=== PATIENT | male | born 1950 | race Caucasian/White ===

== ENCOUNTER 2016-09-01 10:36 | Emergency (ER) | payer MEDICARE, BC ==
[2016-09-01 11:04] VITALS: BP 124/88
[2016-09-01] MEDS ORDERED: Ketorolac 30 MG/ML SDV IVPUSH ONE (11:26)
[2016-09-01] MEDS ORDERED: Sodium Chloride 0.9% 10 ML Syringe FLUSH PRN (11:26)
[2016-09-01] MEDS ORDERED: Ondansetron 4 MG/2 ML SDV IVPUSH ONE (11:26)
--- NOTE | 2016-09-01 11:57 | EDM.PDOC ---
ED HPI GENERAL MEDICAL PROBLEM - General Chief Complaint: Abdominal Pain Stated Complaint: Flank pain, abdominal pain Time Seen by Provider: 09/01/16 11:10 Source of Information: Reports: Patient, Old Records (Obtained from [facility]), RN Notes Reviewed History Limitations: Reports: No Limitations - History of Present Illness INITIAL COMMENTS - FREE TEXT/NARRATIVE: 65 year old male presents to the ED today with complaints of intermittent, colicky, severe, left flank pain and LLQ abdominal pain. The pain started on Monday after a fall. He fell backwards, hitting his mid back on a railroad tie. The pain has been intermittent since that time. He was initially evaluated on Monday of this week by Dr. Aguiar at [facility]. He had a CT scan done at that time and was told he had a kidney stone and hernias. He states "I guess CT scans don't lie but I don't believe that's what's going on. I 've never had kidney stones before." He called [facility] and was instructed to come to the ED for evaluation. He was discharged home with flexeril and norco. He took both around 9am this morning. He says he was doing well and his pain had mostly subsided until this morning at which time he had a sudden onset of pain followed by nausea and vomiting x3. He has pain with urination, frequency, and is voiding small amounts. He has not noticed any hematuria. He denies testicle pain. He reports some loose stools but says he took a stool softener due to concerns of constipation while taking pain medication. No fever or chills. Left Abdominal Pain Score (Numeric/FACES): 5 - Related Data Allergies Allergy/AdvReac Type Severity Reaction Status Date / Time No Known Allergies Allergy Verified 09/01/16 11:03 Home Meds: Home Meds Acetaminophen/HYDROcodone [Sheffield 325-5 MG] 1 tab PO Q4H PRN #15 tablet 09/01/16 [Rx] Hydrocodone/Acetaminophen [Hydrocodon-Acetaminophen 5-325] 1 tab PO Q4H PRN 11/10 [History] Past Medical History HEENT History: Reports: Impaired Vision Other HEENT History: glasses Gastrointestinal History: Reports: Hemorrhoids Genitourinary History: Reports: Renal Calculus Musculoskeletal History: Reports: Arthritis Neurological History: Reports: Concussion, Vertigo - Past Surgical History HEENT Surgical History: Reports: Tonsillectomy Social & Family History - Family History Family Medical History: Noncontributory - Tobacco Use Smoking Status *Q: Never Smoker Second Hand Smoke Exposure: No - Caffeine Use Caffeine Use: Reports: Coffee, Soda Caffeine Use Comment: Daily - Recreational Drug Use Recreational Drug Use: No ED ROS GENERAL - Review of Systems Review Of Systems: See Below Constitutional: Reports: No Symptoms. Denies: Fever, Chills, Diaphoresis Respiratory: Reports: No Symptoms. Denies: Shortness of Breath Cardiovascular: Reports: No Symptoms. Denies: Chest Pain GI/Abdominal: Reports: Abdominal Pain, Diarrhea, Nausea, Vomiting : Reports: Dysuria, Flank Pain, Frequency, Pain. Denies: Hematuria Musculoskeletal: Reports: Back Pain Neurological: Reports: No Symptoms. Denies: Numbness, Tingling, Weakness ED EXAM, GI/ABD - Physical Exam Exam: See Below Exam Limited By: No Limitations General Appearance: Alert, WD/WN, Anxious, Mild Distress Respiratory/Chest: No Respiratory Distress, Lungs Clear, Normal Breath Sounds, No Accessory Muscle Use, Chest Non-Tender Cardiovascular: Regular Rate, Rhythm, No Murmur GI/Abdominal: Normal Bowel Sounds, Soft, No Organomegaly, No Distention, Tenderness (mild tenderness with palpation to LLQ and LUQ, no guarding, no peritoneal signs ). No: Guarding, Rebound, Rigidity Back Exam: Normal Inspection, Full Range of Motion. No: CVA Tenderness (L), CVA Tenderness (R), Paraspinal Tenderness, Vertebral Tenderness Neurological: Alert, Oriented, Normal Cognition Psychiatric: Flat Affect Skin Exam: Warm, Dry, Intact Course - Vital Signs Last Recorded V/S: Last Vital Signs Temp 97.7 F 09/01/16 10:56 Pulse 69 09/01/16 10:56 Resp 20 09/01/16 10:56 BP 124/88 09/01/16 10:56 Pulse Ox 95 09/01/16 10:56 - Orders/Labs/Meds Orders: Active Orders 24 hr Category Date Time Status Peripheral IV Care [RC] . DIRECTED Care 09/01/16 11:26 Active Abdomen Pelvis wo Cont [CT] Stat Exams 09/01/16 11:26 Taken Sodium Chloride 0.9% [Saline Flush] Med 09/01/16 11:26 Active 10 ml FLUSH ASDIRECTED PRN Peripheral IV Insertion Adult [OM.PC] Stat Oth 09/01/16 11:26 Ordered Medication Orders Sodium Chloride (Saline Flush) 10 ml FLUSH ASDIRECTED PRN PRN Reason: Keep Vein Open Last Admin: 09/01/16 11:57 Dose: 10 ml Labs: Laboratory Tests 09/01/16 09/01/16 09/01/16 Range/Units 11:30 11:50 11:50 WBC 9.24 H (4.23-9.07) K/mm3 RBC 4.51 L (4.63-6.08) M/mm3 Hgb 13.9 (13.7-17.5) gm/L Hct 40.3 (40.1-51.0) % MCV 89.4 (79.0-92.2) fl MCH 30.8 (25.7-32.2) pg MCHC 34.5 (32.2-35.5) g/dl RDW Std Deviation 40.7 (35.1-43.9) fL Plt Count 198 (163-337) K/mm3 MPV 9.8 (9.4-12.3) fl Neut % (Auto) 79.7 H (34.0-67.9) % Lymph % (Auto) 9.3 L (21.8-53.1) % [place] % (Auto) 8.9 (5.3-12.2) % Eos % (Auto) 1.5 (0.8-7.0) Baso % (Auto) 0.5 (0.1-1.2) % Neut # (Auto) 7.36 H (1.78-5.38) K/mm3 Lymph # (Auto) 0.86 L (1.32-3.57) K/mm3 [place] # (Auto) 0.82 (0.30-0.82) K/mm3 Eos # (Auto) 0.14 (0.04-0.54) K/mm3 Baso # (Auto) 0.05 (0.01-0.08) K/mm3 Manual Slide Review Abnormal smear Sodium 138 (136-145) mEq/L Potassium 4.1 (3.5-5.1) mEq/L Chloride 105 (98-107) mEq/L Carbon Dioxide 25 (21-32) mEq/L Anion Gap 12.1 (5-15) BUN 25 H (7-18) mg/dL Creatinine 1.5 H (0.7-1.3) mg/dL Est Cr Clr Drug Dosing 44.31 mL/min Estimated GFR (MDRD) 47 (>60) mL/min BUN/Creatinine Ratio 16.7 (14-18) Glucose 120 H (80-115) mg/dL Calcium 8.5 (8.5-10.1) mg/dL Total Bilirubin 0.4 (0.2-1.0) mg/dL AST 21 (15-37) U/L ALT 20 (16-63) U/L Alkaline Phosphatase 94 (46-116) U/L Total Protein 7.4 (6.4-8.2) g/dl Albumin 3.6 (3.4-5.0) g/dl Globulin 3.8 gm/dL Albumin/Globulin Ratio 1.0 (1-2) Urine Color Yellow (Yellow) Urine Appearance Clear (Clear) Urine pH 7.0 (5.0-8.0) Ur Specific [place] 1.020 (1.005-1.030) Urine Protein Trace H (Negative) Urine Glucose (UA) Negative (Negative) Urine Ketones Negative (Negative) Urine Occult Blood Trace-intact H (Negative) Urine Nitrite Negative (Negative) Urine Bilirubin Negative (Negative) Urine Urobilinogen 0.2 (0.2-1.0) Ur Leukocyte Esterase Negative (Negative) Urine RBC 5-10 H (0-5) /hpf Urine WBC 0-5 (0-5) /hpf Ur Epithelial Cells Not seen (0-5) /hpf Urine Bacteria Not seen (FEW) /hpf Urine Mucus Few (FEW) /hpf Meds: Medications Generic Name Dose Route Start Last Admin Trade Name Freq PRN Reason Stop Dose Admin Sodium Chloride 10 ml 09/01/16 11:26 09/01/16 11:57 Saline Flush FLUSH 10 ml ASDIRECTED PRN Administration Keep Vein Open Discontinued Medications Generic Name Dose Route Start Last Admin Trade Name Freq PRN Reason Stop Dose Admin Ketorolac Tromethamine 30 mg 09/01/16 11:26 09/01/16 11:58 Toradol IVPUSH 09/01/16 11:27 30 mg ONETIME ONE Administration Ondansetron HCl 4 mg 09/01/16 11:26 09/01/16 11:56 Zofran IVPUSH 09/01/16 11:27 4 mg ONETIME ONE Administration - Re-Assessments/Exams Free Text/Narrative Re-Assessment/Exam: CT report obtained from [facility]. CT abdomen/pelvis was obtained with oral contrast only on 08/29/16. Impression: No evidence of appendicitis, diverticulitis, or hydronephrosis. Small calyceal tip stone in the midpole of the right kidney. Small fat containing inguinal hernia is noted on the left greater than the right. 09/01/16 1245 CBC is unremarkable. CMP reveals mildly elevated kidney function and glucose, otherwise normal. UA positive for hematuria. CT of abdomen/pelvis without contrast read by [facility], impression: 1. mild left perinephric stranding and hydronephrosis secondary to a 4mm calculus located at or just inside the left ureterovesical junction. Patient was notified of findings. Images of kidney stones was provided for education purposes. The patient was educated no supportive care and f/u instructions. He has about 5 pills left of Sheffield from his clinic visit on Monday. Will provide him with a refill. He was educated on safety precautions regarding opiate pain medication. Discharge instructions as documented. Departure - Departure Time of Disposition: 12:56 Disposition: Home, Self-Care 01 Condition: good Clinical Impression: Kidney stone on left side Back strain Qualifiers: Encounter type: initial encounter Qualified Code(s): S39.012A - Strain of muscle, fascia and tendon of lower back, initial encounter - Discharge Information Prescriptions: Acetaminophen/HYDROcodone [Sheffield 325-5 MG] 1 tab PO Q4H PRN #15 tablet PRN Reason: Pain Instructions: Kidney Stones, [id number] Referrals: Tonny Lomeli MD [Primary Care Provider] - Forms: ED Department Discharge Additional Instructions: Drink at least 80 oz of water per day Ibuprofen 600-800mg every 8 hours as needed for mild to moderate pain Hydrocodone/apap 1-2 tabs every 4-6 hours as needed for more severe pain Follow-up in clinic or ER if you have not passed the stone in 3-4 days Return to ER if you are unable to manage your pain at home No driving for at least 6-8 hours after taking your pain medication or muscle relaxer - My Orders Last 24 Hours: My Active Orders 09/01/16 11:26 Peripheral IV Care [RC] . DIRECTED Abdomen Pelvis wo Cont [CT] Stat Sodium Chloride 0.9% [Saline Flush] 10 ml FLUSH ASDIRECTED PRN Peripheral IV Insertion Adult [OM.PC] Stat - Assessment/Plan Last 24 Hours: My Active Orders 09/01/16 11:26 Peripheral IV Care [RC] . DIRECTED Abdomen Pelvis wo Cont [CT] Stat Sodium Chloride 0.9% [Saline Flush] 10 ml FLUSH ASDIRECTED PRN Peripheral IV Insertion Adult [OM.PC] Stat
--- NOTE | 2016-09-01 14:56 | CT ---
CT abdomen and pelvis Technique: Multiple axial sections were obtained from above the dome of the diaphragm inferiorly through the pubic symphysis. Intravenous and oral contrast was not utilized. Study has been performed as a ureteral stone protocol. Findings: Left ureter is mildly prominent. Slight inflammatory change is seen around portions of the left ureter. These findings are due to an obstructing stone within the distal left ureter at the UVJ measuring 3-4 mm. No other abnormal calcification seen along the course of the ureters. Small nonobstructing stone noted within the right kidney measuring less than 5 mm. Small cyst noted within the lower right kidney measuring about 1 cm. No additional abnormality is seen within the kidneys. Visualized lung bases are clear. Noncontrast appearance of the liver and spleen appears within normal limits. Pancreas appears within normal limits. Aorta shows no aneurysmal dilatation with mild atherosclerotic change which continues into the iliac vessels. Gallbladder shows no calcified gallstones. No retroperitoneal adenopathy or mesenteric abnormalities are seen. Appendix felt to be seen and is within normal limits. No pelvic mass or adenopathy is noted. Small fat-containing left inguinal hernia is noted. Bone window settings were reviewed which appear within normal limits for the patient's age. Impression: 1. Slightly prominent size of the left ureter with mild periurethral inflammatory change. These findings are caused by an obstructing 3-4 mm distal left ureteral stone at the UVJ. 2. Small cyst and small nonobstructing stone within the right kidney. 3. Other incidental findings as described above. Agree with preliminary report issued by [facility] (preliminary report dictated on 09/01/16, 1:03 PM Central Time) Diagnostic code #3
== END 2016-09-01 13:15 | disposition home or self-care (01) ==
LOC: JD.ED 10:36
DX: S39.012A Strain of muscle, fascia and tendon of lower back, initial encounter (principal); N13.2 Hydronephrosis with renal and ureteral calculous obstruction; M19.90 Unspecified osteoarthritis, unspecified site; Z98.890 Other specified postprocedural states; W01.198A Fall on same level from slipping, tripping and stumbling with subsequent striking against other object, initial encounter
CPT/HCPCS: 36415; 74176; 80053; 81001; 85025; 96374; 96375; 99284; J1885; J2405; J7050

== ENCOUNTER 2018-03-22 08:35 | Emergency (ER) | payer OTHER, MEDICARE, BC ==
[2018-03-22] MEDS ORDERED: Acetaminophen 325 MG Tab PO ONE (09:04)
--- NOTE | 2018-03-22 09:51 | EDM.PDOC ---
ED HPI GENERAL MEDICAL PROBLEM - General Chief Complaint: Chest Pain Stated Complaint: CHEST INJURY Time Seen by Provider: 03/22/18 08:44 Source of Information: Reports: Patient, RN Notes Reviewed - History of Present Illness INITIAL COMMENTS - FREE TEXT/NARRATIVE: 67-year-old male was pushing snow with a skid steer type cut off machine unloader when he ran into the curb at the edge of a parking lot unexpectedly. He was going quite fast. This threw his chest against a protective bar that goes across the seat in front of him anterior to his chest. He has had anterior chest discomfort since this happened worse with deep breathing and worse with certain types of motion. No abdominal pain nausea vomiting. No unusual weakness dizziness. Chest Pain Score (Numeric/FACES): 4 - Related Data Allergies Allergy/AdvReac Type Severity Reaction Status Date / Time No Known Allergies Allergy Verified 03/22/18 08:47 Home Meds: Home Meds . [No Known Home Meds] 03/22/18 [History] Past Medical History HEENT History: Reports: Impaired Vision Other HEENT History: glasses Gastrointestinal History: Reports: Hemorrhoids Genitourinary History: Reports: Renal Calculus Musculoskeletal History: Reports: Arthritis Neurological History: Reports: Concussion, Vertigo - Past Surgical History HEENT Surgical History: Reports: Tonsillectomy Social & Family History - Family History Family Medical History: Noncontributory - Caffeine Use Caffeine Use: Reports: Coffee, Soda Caffeine Use Comment: Daily ED ROS GENERAL - Review of Systems Review Of Systems: See Below Constitutional: Denies: Diaphoresis HEENT: Reports: No Symptoms Respiratory: Reports: Pleuritic Chest Pain. Denies: Shortness of Breath, Wheezing Cardiovascular: Reports: Chest Pain GI/Abdominal: Denies: Abdominal Pain (Anterior chest), Nausea, Vomiting Musculoskeletal: Denies: Neck Pain, Back Pain, Joint Pain Skin: Reports: No Symptoms Neurological: Reports: No Symptoms. Denies: Dizziness ED EXAM, GENERAL - Physical Exam Exam: See Below General Appearance: Alert, Mild Distress Eye Exam: Bilateral Eye: PERRL Throat/Mouth: Normal Inspection Head: Atraumatic Neck: Supple Respiratory/Chest: No Respiratory Distress, Lungs Clear, Normal Breath Sounds, Other (There is mild tenderness of the anterior chest, no severe rib or sternal tenderness, no bruising or swelling visible) Cardiovascular: Regular Rate, Rhythm GI/Abdominal: Soft, Non-Tender. No: Guarding, Rebound Back Exam: No: CVA Tenderness (L), CVA Tenderness (R) Extremities: Normal Inspection Neurological: Alert, Oriented, No Motor/Sensory Deficits Skin Exam: Warm, Dry, Normal Color Course - Vital Signs Last Recorded V/S: Last Vital Signs Temp 98.1 F 03/22/18 10:25 Pulse 67 03/22/18 10:25 Resp 12 03/22/18 10:25 BP 141/111 H 03/22/18 10:25 Pulse Ox 97 03/22/18 10:25 - Orders/Labs/Meds Orders: Active Orders 24 hr Category Date Time Status CXR [Chest 2V] [CR] Stat Exams 03/22/18 09:05 Taken Meds: Medications Discontinued Medications Generic Name Dose Route Start Last Admin Trade Name Krys PRN Reason Stop Dose Admin Acetaminophen 975 mg 03/22/18 09:04 03/22/18 09:23 Tylenol PO 03/22/18 09:05 975 mg NOW ONE Administration - Re-Assessments/Exams Free Text/Narrative Re-Assessment/Exam: 03/22/18 17:18 Chest x-ray looks good, sats are good, he feels better after Tylenol given, CT of chest not clinically indicated at this time, he will return if symptoms worsen. Discharge instructions as documented. Departure - Departure Time of Disposition: 09:49 Disposition: Home, Self-Care 01 Condition: Fair Clinical Impression: Chest wall contusion Qualifiers: Encounter type: initial encounter Laterality: unspecified laterality Qualified Code(s): S20.219A - Contusion of unspecified front wall of thorax, initial encounter Instructions: Chest Contusion, Adult, [id number] Referrals: Tonny Lomeli MD [Primary Care Provider] - Forms: ED Department Discharge Additional Instructions: Rest, avoid heavy lifting, you have been given Tylenol while here in the ED, YOur chest Xray looks good. Continue Tylenol up to 3 times daily, you may take Advil or ibuprofen in between doses of Tylenol if needed for extra pain relief, may also alternate ice and heat as needed, follow-up clinic if not getting back to normal within 5-7 days as expected, return to ED as needed if symptoms worsening in any way. - My Orders Last 24 Hours: My Active Orders 03/22/18 09:05 CXR [Chest 2V] [CR] Stat - Assessment/Plan Last 24 Hours: My Active Orders 03/22/18 09:05 CXR [Chest 2V] [CR] Stat
[2018-03-22 12:17] VITALS: BP 141/111
--- NOTE | 2018-03-23 08:38 | CR ---
Chest: PA and lateral views of the chest were obtained. Comparison: No prior chest x-ray. Heart size and mediastinum are normal. Slight atelectasis is seen within the left base. Lungs otherwise are clear. Bony structures show slight degenerative spurring within the spine. Mild kyphosis is present within the spine. Diaphragms are slightly flattened on the lateral view suggesting mild emphysematous change. Impression: 1. Incidental findings as noted above. Nothing acute is appreciated. Diagnostic code #2
== END 2018-03-22 10:25 | disposition home or self-care (01) ==
LOC: JD.ED 08:35
DX: S20.219A Contusion of unspecified front wall of thorax, initial encounter (principal); W22.8XXA Striking against or struck by other objects, initial encounter; Y92.481 Parking lot as the place of occurrence of the external cause
CPT/HCPCS: 71046; 99283; A9270

== ENCOUNTER 2019-05-22 12:23 | Emergency (ER) | payer MEDICARE, BC ==
[2019-05-22 12:51] VITALS: BP 153/84; PULSE 66
[2019-05-22] MEDS ORDERED: Ketorolac 60 MG/2 ML SDV IM ONE (14:34)
--- NOTE | 2019-05-22 14:36 | EDM.PDOCBH ---
ED HPI GENERAL MEDICAL PROBLEM - General Chief Complaint: Behavioral/Psych Stated Complaint: ANXIETY AND SUICIDAL IDEATIONS Time Seen by Provider: 05/22/19 13:03 Source of Information: Reports: Patient, RN Notes Reviewed History Limitations: Reports: No Limitations - History of Present Illness INITIAL COMMENTS - FREE TEXT/NARRATIVE: Patient is a 68-year-old male who presents to the ED for the evaluation of some suicidal ideations. The patient states that his recently in November 2018, and she was his "life sonia". He has been having an exceptionally rough time since the passing of his . He also notes that he has been to 7 funerals since his has passed, and he he just is having a hard time coping with things at this time. He notes that he has been having a lot of mental anguish, and also a lot of physical pain as he has arthritis, both knees are shot. He does PT on a regular basis, this does not provide him with much relief. The patient states that he had a neighbor who was worried about him, that took him or referred him to [facility] for management, but badly and sent him here for further evaluation. Patient does state that he has access to multiple guns and knives at home, but he does not have a set plan or know how he would commit suicide if he were to do so. He is not hearing or seeing things that are not there as well. He states that he went over to the neighbor's house, just because he was not sure what to do anymore. He is alert and oriented, calm and cooperative. His primary care provider is Dr. Saenz. Headache Pain Score (Numeric/FACES): 6 - Related Data Allergies Allergy/AdvReac Type Severity Reaction Status Date / Time No Known Allergies Allergy Verified 05/22/19 12:51 Home Meds: Home Meds LORazepam [Ativan] 1 mg PO BID 05/22/19 [History] Rosuvastatin [Crestor] 2.5 mg PO DAILY 05/22/19 [History] Sertraline [Zoloft] 50 mg PO BEDTIME 05/22/19 [History] Past Medical History HEENT History: Reports: Impaired Vision Other HEENT History: glasses Cardiovascular History: Reports: High Cholesterol Gastrointestinal History: Reports: Hemorrhoids Genitourinary History: Reports: Renal Calculus Musculoskeletal History: Reports: Arthritis Neurological History: Reports: Concussion, Vertigo Psychiatric History: Reports: Anxiety, Depression, Suicidal Ideation - Past Surgical History HEENT Surgical History: Reports: Tonsillectomy Social & Family History - Family History Family Medical History: Noncontributory - Tobacco Use Smoking Status *Q: Never Smoker - Caffeine Use Caffeine Use: Reports: Coffee Caffeine Use Comment: Daily - Recreational Drug Use Recreational Drug Use: No ED ROS GENERAL - Review of Systems Review Of Systems: See Below Constitutional: Denies: Fever, Chills HEENT: Denies: Throat Pain Respiratory: Denies: Shortness of Breath Cardiovascular: Denies: Chest Pain GI/Abdominal: Denies: Abdominal Pain, Constipation, Diarrhea, Nausea, Vomiting : Denies: Dysuria Neurological: Reports: Headache. Denies: Confusion Psychiatric: Reports: Anxiety, Depression, Suicidal Ideation (with no concrete plan). Denies: Hallucinations, Homicidal Ideation ED EXAM, BEHAVIORAL HEALTH - Physical Exam Exam: See Below Exam Limited By: No Limitations General Appearance: Alert, WD/WN, No Apparent Distress Eye Exam: Bilateral Eye: EOMI, Normal Inspection, PERRL Ears: Normal External Exam Nose: Normal Inspection Throat/Mouth: Normal Inspection, Normal Lips, Normal Teeth, Normal Gums, Normal Oropharynx, Normal Voice, No Airway Compromise Head: Atraumatic, Normocephalic Neck: Normal Inspection Respiratory/Chest: No Respiratory Distress, Lungs Clear, Normal Breath Sounds, No Accessory Muscle Use, Chest Non-Tender Cardiovascular: Normal Peripheral Pulses, Regular Rate, Rhythm, No Murmur GI/Abdominal: Normal Bowel Sounds, Soft, Non-Tender, No Distention, No Mass Extremities: Normal Inspection, Normal Capillary Refill Neurological: Alert, Normal Mood/Affect, CN II-XII Intact, Normal Cognition, Normal Gait, Normal Reflexes, No Motor/Sensory Deficits, Oriented x 3 Psychiatric: Alert, Normal Affect, Normal Cognition, Normal Mood, Oriented, Tearful (at times when he is recalling his 's memory), Suicidal Thoughts. No: Suicidal Plan, Auditory Hallucinations, Visual Hallucinations, Paranoid Thoughts, Threatening Behavior Skin Exam: Warm, Dry, Intact, Normal color, No rash COURSE, BEHAVIORAL HEALTH COMP - Course Vital Signs: Last Vital Signs Temp 97.3 F 05/22/19 12:46 Pulse 66 05/22/19 12:46 Resp 16 02/26/20 12:46 BP 153/84 H 05/22/19 12:46 Pulse Ox 96 05/22/19 12:46 Orders, Labs, Meds: Active Orders 24 hr Category Date Time Status EKG Documentation Completion [RC] STAT Care 05/22/19 13:03 Ordered DRUG SCREEN, URINE [URCHEM] Stat Lab 05/22/19 13:03 Ordered Laboratory Tests 05/22/19 05/22/19 05/22/19 Range/Units 13:15 13:15 13:15 WBC 15.36 H (4.23-9.07) K/mm3 RBC 4.71 (4.63-6.08) M/mm3 Hgb 14.6 (13.7-17.5) gm/dl Hct 41.9 (40.1-51.0) % MCV 89.0 (79.0-92.2) fl MCH 31.0 (25.7-32.2) pg MCHC 34.8 (32.2-35.5) g/dl RDW Std Deviation 42.6 (35.1-43.9) fL Plt Count 235 (163-337) K/mm3 MPV 8.8 L (9.4-12.3) fl Neutrophils % (Manual) 86 H (40-60) % Band Neutrophils % 0 (0-10) % Lymphocytes % (Manual) 9 L (20-40) % Atypical Lymphs % 0 % Monocytes % (Manual) 4 (2-10) % Eosinophils % (Manual) 1 (0.8-7.0) % Basophils % (Manual) 0 L (0.2-1.2) Platelet Estimate Adequate RBC Morph Comment Normal Sodium 138 (136-145) mEq/L Potassium 4.0 (3.5-5.1) mEq/L Chloride 102 (98-107) mEq/L Carbon Dioxide 24 (21-32) mEq/L Anion Gap 16.0 H (5-15) BUN 21 H (7-18) mg/dL Creatinine 1.3 (0.7-1.3) mg/dL Est Cr Clr Drug Dosing 49.08 mL/min Estimated GFR (MDRD) 55 (>60) mL/min BUN/Creatinine Ratio 16.2 (14-18) Glucose 99 (80-115) mg/dL Calcium 9.4 (8.5-10.1) mg/dL Total Bilirubin 0.7 (0.2-1.0) mg/dL AST 63 H (15-37) U/L ALT 63 (16-63) U/L Alkaline Phosphatase 95 (46-116) U/L Total Protein 7.8 (6.4-8.2) g/dl Albumin 3.9 (3.4-5.0) g/dl Globulin 3.9 gm/dL Albumin/Globulin Ratio 1.0 (1-2) TSH 3rd Generation 1.107 (0.358-3.74) uIU/mL Salicylates 1.5 L (2.8-20) mg/dL Acetaminophen 0 L (10-30) ug/mL Ethyl Alcohol 0.00 (0.00) gm% Medications Discontinued Medications Generic Name Dose Route Start Last Admin Trade Name Freq PRN Reason Stop Dose Admin Ketorolac Tromethamine 60 mg 05/22/19 14:34 05/22/19 15:01 Toradol IM 05/22/19 14:35 60 mg ONETIME ONE Administration Discharge vs Psych Eval/Treatment:: 05/22/19 14:39 Patient presents to the ED with [facility] staff for the evaluation of his suicidal ideations. At this time the patient is not having any sort of suicidal plan. I do believe that he is quite depressed, and I did urge him to get counseling or start counseling if he is not already done so. He does agree with this at this time. He states he is not in a state where he would want to have inpatient psychiatric admission, and I do agree with him. He does have a cousin present in the room, and I told the cousin that he will have to go to the patient's house and take away the guns for the next day or 2 so the patient does not have access to this, the patient is okay with this plan as well. I had advised the patient to go to [facility] in the morning for open enrollment, and he does agree to do so to start psychiatric management. Departure - Departure Time of Disposition: 14:40 Disposition: Home, Self-Care 01 Condition: Fair Clinical Impression: Passive suicidal ideations, Anxiety - Discharge Information *PRESCRIPTION DRUG MONITORING PROGRAM REVIEWED*: No *COPY OF PRESCRIPTION DRUG MONITORING REPORT IN PATIENT GUILLAUME: No Instructions: Suicidal Feelings: How to Help Yourself, Stress Referrals: Tonny Lomeli MD [Primary Care Provider] - Forms: ED Department Discharge Additional Instructions: You were evaluated in the ER today regarding your suicidal ideations. At this time you do not need inpatient psychiatric admission. Highly recommend that you go to [facility], tomorrow, at 8 AM for open enrollment, see you can start counseling services and other psychiatric services through them. Please keep taking all of your prior medications as previously prescribed. It looks as if you already have a prescription for Ativan, if you have not refilled this in a while, please refill this at your pharmacy and take as directed, this should help you with sleep tonight. As for your headaches, recommend you take 600 mg ibuprofen every 6 hours as needed for further pain relief. You may present to [facility], if you feel you need further help, or you can call their emergency crisis line at [phone]. Also please do not hesitate to return the ER if your suicidal thoughts worsen, or if you develop a plan, as this would warrant further and emergent management. Sepsis Event Note - Evaluation Sepsis Screening Result: No Definite Risk - Focused Exam Vital Signs: Vital Signs Temp Pulse Resp BP Pulse Ox 05/22/19 12:46 97.3 F 66 16 153/84 H 96 Date Exam was Performed: 05/22/19 Time Exam was Performed: 15:22 - My Orders Last 24 Hours: My Active Orders 05/22/19 13:03 EKG Documentation Completion [RC] STAT DRUG SCREEN, URINE [URCHEM] Stat - Assessment/Plan Last 24 Hours: My Active Orders 05/22/19 13:03 EKG Documentation Completion [RC] STAT DRUG SCREEN, URINE [URCHEM] Stat
== END 2019-05-22 15:46 | disposition home or self-care (01) ==
LOC: JD.ED 12:23
DX: F41.9 Anxiety disorder, unspecified (principal); R45.851 Suicidal ideations; E78.00 Pure hypercholesterolemia, unspecified; F32.9 Major depressive disorder, single episode, unspecified; Z79.899 Other long term (current) drug therapy
CPT/HCPCS: 36415; 80053; 80307; 84443; 85007; 85027; 93005; 96372; 99285; J1885; 93010; 99284

== ENCOUNTER 2022-04-28 07:48 | Day surgery (SDC) | payer MEDICARE, BC ==
[~2022-04-28 07:48] MED LIST: Acetaminophen 325 MG Tab PO SCH; Dexmedetomidine 200 MCG/2 ML SDV ONE; Lactated Ringers 1,000 ML IV SCH; Lidocaine 1% 2 ML ONE; Lidocaine 1%/Sod Bicarbonate in NS 8.4% 1 ML Syringe IDERM PRN; Midazolam 1 MG/ML 2 ML SDV ONE; Morphine 8 MG, EPINEPHrine 0.3 MG, Cefuroxime 750 MG, Ketorolac 30 MG, Sodium Chloride ... PRN; Pregabalin 25 MG Cap PO SCH; Propofol 200 MG/20 ML SDV ONE; Ropivacaine 0.5% 5 MG/ML 30 ML SDV ONE; Sodium Chloride 0.9% 10 ML Syringe FLUSH PRN; Sodium Chloride 0.9% 10 ML Syringe FLUSH SCH; fentaNYL 100 MCG/2 ML SDV ONE; oxyCODONE ER 10 MG TAB.ER PO SCH
[2022-04-28] MEDS ORDERED: Triamcinolone Acetonide 40 MG/ML 1 ML SDV ONE (07:51)
[2022-04-28] MEDS ORDERED: Bupivacaine 0.25% 10 ML SDV ONE (07:52)
[2022-04-28] MEDS ORDERED: Vancomycin 1 GM SDV ONE (07:52)
[2022-04-28] MEDS ORDERED: Tranexamic Acid 1,000 MG/10 ML Vial ONE (07:52)
[2022-04-28] MEDS ORDERED: Sodium Chloride 0.9% 10 ML Syringe FLUSH PRN (09:08)
[2022-04-28] MEDS ORDERED: Lidocaine 1%/Sod Bicarbonate in NS 8.4% 1 ML Syringe IDERM PRN (09:08)
[2022-04-28] MEDS ORDERED: Lactated Ringers 1,000 ML IV SCH (09:15)
[2022-04-28] MEDS ORDERED: ePHEDrine 50 MG/ML SDV ONE (09:21)
[2022-04-28] MEDS ORDERED: Lidocaine 1% PF 2 ML SDV ONE (09:25)
[2022-04-28] MEDS ORDERED: ceFAZolin 2 GM Vial ONE (09:25)
[2022-04-28] MEDS ORDERED: diphenhydrAMINE 50 MG/ML SDV IVPUSH PRN (09:36)
[2022-04-28] MEDS ORDERED: fentaNYL 100 MCG/2 ML SDV IVPUSH PRN (09:36)
[2022-04-28] MEDS ORDERED: Ondansetron 4 MG/2 ML SDV IVPUSH PRN (09:36)
[2022-04-28] MEDS ORDERED: Lactated Ringers 1,000 ML ONE (09:37)
[2022-04-28] MEDS ORDERED: Propofol 200 MG/20 ML SDV ONE ×2 (09:57→10:41)
[2022-04-28] MEDS ORDERED: Ondansetron 4 MG/2 ML SDV ONE (10:50)
[2022-04-28] MEDS ORDERED: oxyCODONE 5 MG Tab PO PRN (11:15)
[2022-04-28] MEDS ORDERED: Cyclobenzaprine 10 MG Tab PO PRN (11:15)
[2022-04-28] MEDS ORDERED: EPINEPHrine 1 MG/ML SDV ONE (11:21)
[2022-04-28 16:29] VITALS: BP 125/71; PULSE 67
== END 2022-04-28 14:00 | disposition home or self-care (01) ==
LOC: JD.SDS 07:48
PROVIDERS: ATTEND Orthopaedic Surgery
DX: M17.0 Bilateral primary osteoarthritis of knee (principal); F41.9 Anxiety disorder, unspecified; E78.5 Hyperlipidemia, unspecified; I10 Essential (primary) hypertension; M79.7 Fibromyalgia; F32.A Depression, unspecified; G62.9 Polyneuropathy, unspecified; Z79.899 Other long term (current) drug therapy; Z79.84 Long term (current) use of oral hypoglycemic drugs; Z98.890 Other specified postprocedural states; Z87.891 Personal history of nicotine dependence; E78.00 Pure hypercholesterolemia, unspecified; Z79.82 Long term (current) use of aspirin
CPT/HCPCS: 01402; 64447; 73560-26-LT; 73560-LT; 97110-GP; 97116-GP; 97161-GP; A9270-GY; C1713; C1776; J0171; J0690; J0697; J1885; J2250; J2270; J2405; J2704; J2795; J3010; J3301; J3370; J3490; J7120

== ENCOUNTER 2024-07-08 14:48 | Inpatient (IN) | payer MEDICARE ==
[2024-07-08] MEDS ORDERED: Sodium Chloride 0.9% 10 ML Syringe FLUSH PRN (15:16)
[2024-07-08] MEDS: Sodium Chloride 0.9% 500 ML IV ONE (15:33)
[2024-07-08] MEDS: Ketorolac 15 MG/ML SDV IVPUSH ONE (15:34)
[2024-07-08] MEDS: Sodium Chloride 0.9% 10 ML Syringe FLUSH ONE (15:48)
[2024-07-08] MEDS: Iopamidol 755 Mg/ML 100 ML Bottle IVPUSH ONE (15:48)
[2024-07-08] MEDS: Sodium Chloride 0.9% 1,000 ML IV ONE ×2 (17:20→19:54)
[2024-07-08] MEDS: oxyCODONE 5 MG Tab PO PRN (20:02)
[2024-07-08] MEDS: fentaNYL 100 MCG/2 ML SDV IVPUSH PRN (23:21)
[2024-07-08] MEDS: Sodium Chloride 0.9% 1,000 ML IV SCH (23:22)
[2024-07-09] MEDS: Ketorolac 15 MG/ML SDV IVPUSH PRN (06:48)
[2024-07-09] MEDS ORDERED: Ondansetron 4 MG/2 ML SDV IVPUSH PRN (06:55)
[2024-07-09] MEDS: Pantoprazole 40 MG Vial IVPUSH SCH (08:52)
[2024-07-09] MEDS: Gabapentin 100 MG Cap PO SCH (14:30)
[2024-07-09] MEDS: Dextrose 5%-0.45% NaCl 1,000 ML IV SCH (14:30)
[2024-07-10] MEDS: HYDROmorphone 1 MG/ML Syringe IVPUSH PRN (00:01)
[2024-07-10 05:39] LABS: A/G RATIO 0.8 (1-2); ALBUMIN 2.7 g/dl (3.4-5.0); ANION GAP 9.4 (5-15); BILIRUBIN TOTAL 0.5 mg/dL (0.2-1.0); BUN/CREATININE RATIO 15.5 (14-18); CALCIUM 8.3 mg/dL (8.5-10.1); CREATININE 1.1 mg/dL (0.7-1.3); EST CRCL DRUG DOSING (CG) 52.03 mL/min; MAGNESIUM 1.8 mg/dL (1.8-2.4); POTASSIUM,K 4.4 mEq/L (3.5-5.1); PROTEIN TOTAL,TP 5.9 g/dl (6.4-8.2)
[2024-07-10] MEDS: Enoxaparin 40 MG/0.4 ML Syringe SUBCUT SCH (08:59)
[2024-07-10] MEDS: Rosuvastatin 10 MG Tab PO SCH (08:59)
[2024-07-11 05:28] LABS: A/G RATIO 0.9 (1-2); ALBUMIN 2.9 g/dl (3.4-5.0); ANION GAP 12.2 (5-15); BILIRUBIN TOTAL 0.5 mg/dL (0.2-1.0); BUN/CREATININE RATIO 8.5 (14-18); CALCIUM 8.6 mg/dL (8.5-10.1); CREATININE 1.3 mg/dL (0.7-1.3); EST CRCL DRUG DOSING (CG) 44.02 mL/min; MAGNESIUM 1.8 mg/dL (1.8-2.4); POTASSIUM,K 4.2 mEq/L (3.5-5.1); PROTEIN TOTAL,TP 6.3 g/dl (6.4-8.2)
[2024-07-11 08:16] VITALS: BP 130/75; PULSE 56
== END 2024-07-11 13:54 | disposition home or self-care (01) | DRG 440 ==
LOC: JD.ED 14:48 → JD.MS 17:09
PROVIDERS: ADMIT Internal Medicine; ATTEND Internal Medicine
DX: K85.90 Acute pancreatitis without necrosis or infection, unspecified (principal); E11.9 Type 2 diabetes mellitus without complications; I10 Essential (primary) hypertension; E78.00 Pure hypercholesterolemia, unspecified; Z68.34 Body mass index [BMI] 34.0-34.9, adult; H54.7 Unspecified visual loss; N20.0 Calculus of kidney; M19.90 Unspecified osteoarthritis, unspecified site; F41.9 Anxiety disorder, unspecified; F32.A Depression, unspecified; F12.90 Cannabis use, unspecified, uncomplicated; E66.9 Obesity, unspecified; Z79.82 Long term (current) use of aspirin; Z96.659 Presence of unspecified artificial knee joint; Z79.84 Long term (current) use of oral hypoglycemic drugs; Z90.49 Acquired absence of other specified parts of digestive tract; Z79.899 Other long term (current) drug therapy; Z98.49 Cataract extraction status, unspecified eye
CPT/HCPCS: 36415; 80053; 82947; 83735; 93005; 93010; 96374; 99285; 99285-25; A9270-GY; J1171; J1650; J1885; J2470; J3010; J7030; Q9967